=== PATIENT | female | born 1940 | race Two or more races ===

== ENCOUNTER 2021-07-25 12:21 | Emergency (ER) | payer OTHER ==
[~2021-07-25] VITALS: Ht 134.6 cm; Wt 59.0 kg
[~2021-07-25 12:21] MED LIST: AMLODIPINE BESYL5 MG; HYZAAR 100-121 UDTAB; METFORMIN HCL1000 MG; ZOCOR20 MG
[2021-07-25] MEDS ORDERED: MACRODANTIN100 M1 PO (16:33)
[2021-07-25] MEDS ORDERED: SKELAGESIC PO (16:33)
== END 2021-07-25 17:31 | disposition home or self-care (01) ==
LOC: ER 12:21
DX: G89.29 Other chronic pain (principal); R10.84 Generalized abdominal pain; N39.0 Urinary tract infection, site not specified